=== PATIENT | female | born 1995 | race Caucasian/White ===

== ENCOUNTER 2022-03-10 03:57 | Inpatient (IN) ==
[2022-03-10] MEDS ORDERED: miSOPROStoL 25 MCG TABLET PO PRN (04:08)
[2022-03-10] MEDS ORDERED: Metoclopramide 10 MG/2 ML VIAL IVP PRN (04:08)
[2022-03-10] MEDS ORDERED: Naloxone 0.4 MG/ML INJ IVP PRN (04:08)
[2022-03-10] MEDS ORDERED: Famotidine 20 MG/2 ML VIAL IVP PRN (04:08)
[2022-03-10 05:23] LABS: Basophils # 0.1 K/mcL (0.0-0.2); Basophils % 0.4 %; Eosinophils # 0.1 K/mcL (0.0-0.6); Eosinophils % 0.8 %; Hematocrit 38.8 % (35.3-44.9); Hemoglobin 13.2 g/dL (11.5-15.4); Immature Granulocytes % 2.7 % (0-4); Lymphocytes # 2.8 K/mcL (0.6-4.6); Lymphocytes % 17.3 %; Mean Corpuscular Hemoglobin 28.5 pg (28.0-33.3); Mean Corpuscular Volume 83.8 fL (83.0-100.0); Mean Platelet Volume 11.9 fL (9.4-12.4); Monocytes # 1.4 K/mcL (0.0-1.3); Monocytes % 8.5 %; Neutrophils # 11.3 K/mcL (1.6-8.9); Platelet Count 161 K/mcL (140-400); Red Blood Count 4.63 M/mcL (3.82-4.97); Red Cell Distribution Width 13.5 % (11.5-14.5); Segmented Neutrophils % 70.3 %; White Blood Count 16.1 K/mcL (4.3-11.1)
[2022-03-10 05:37] LABS: Amphetamine Screen,Urine Negative ng/mL (Cutoff=1000); Barbiturate Screen,Urine Negative ng/mL (Cutoff=200); Benzodiazepines Screen,Urine Negative ng/mL (Cutoff=200); Cannabinoid Screen,Urine Negative ng/mL (Cutoff = 50); Cocaine Screen,Urine Negative ng/mL (Cutoff= 300); Opiate Screen,Urine Negative ng/mL (Cutoff=300); Phencyclidine Screen,Urine Negative ng/mL (Cutoff=25)
[2022-03-10] MEDS ORDERED: EPHEDrine 50 MG/ML VIAL IVP PRN (06:36)
[2022-03-10] MEDS ORDERED: *HR* Nalbuphine 10 MG/ML AMPUL IV PRN (09:53)
[2022-03-10] MEDS: Ringers Solution, Lactated 1,000 ML IVC SCH ×2 (09:59→14:00)
[2022-03-10 12:29] LABS: Protein/Creatinine Ratio,Urine 0.35 mg/mg (0.00-0.20)
[2022-03-10 13:02] LABS: Alanine Aminotransferase 12 Units/L (7-52); Aspartate Amino Transferase 16 Units/L (13-39); BUN/Creatinine Ratio 21 (6-26); Blood Urea Nitrogen 12 mg/dL (6-20); Lactate Dehydrogenase 183 Units/L (140-271); Uric Acid 6.9 mg/dL (2.3-7.6)
[2022-03-10] MEDS: Epidural Premix (fent/bupiv) 110 ML EP SCH ×2 (13:59→19:32)
[2022-03-10] MEDS: Oxytocin 30 UNIT/503 ML BAG IVC SCH (15:40)
[2022-03-11] MEDS: Epidural Premix (fent/bupiv) 110 ML EP SCH ×3 (00:57→13:07)
[2022-03-11] MEDS: Oxytocin 30 UNIT/503 ML BAG IVC SCH (03:15)
[2022-03-11] MEDS ORDERED: Azithromycin 500 MG in 0.9 % Sodium Chloride 250 ML IVPB PRN (13:06)
[2022-03-11] MEDS ORDERED: CeFAZolin Syr 3,000MG/30 ML 3,000 MG/30 ML SYRINGE IVPB ONE (13:27)
[2022-03-11] MEDS ORDERED: Ondansetron 4 MG/2 ML VIAL ONE (14:00)
[2022-03-11] MEDS ORDERED: Acetaminophen IV 1,000 MG/100 ML BAG IVPB ONE (14:00)
[2022-03-11] MEDS ORDERED: Ketorolac 30 MG/ML VIAL ONE (14:00)
[2022-03-11] MEDS ORDERED: Sodium Bicarbonate 50 MEQ/50 ML VIAL ONE (14:00)
[2022-03-11] MEDS ORDERED: EPHEDrine 50 MG/ML VIAL ONE (14:01)
[2022-03-11] MEDS ORDERED: Lidocaine/EPI 1:200k 2% PF 20 ML VIAL ONE (14:04)
[2022-03-11] MEDS ORDERED: *HR* Morphine Sulfate/PF 10 MG/10 ML AMPUL ONE (14:41)
[2022-03-11] MEDS ORDERED: *HR* HYDROmorphone PF 0.5 MG/0.5 ML SYRINGE IVP PRN (14:44)
[2022-03-11] MEDS ORDERED: Promethazine 6.25 MG in Water for inj. (sterile) 20 ML IVPB PRN (14:44)
[2022-03-11] MEDS ORDERED: Ondansetron 4 MG/2 ML VIAL IVP PRN ×2 (14:44→18:26)
[2022-03-11] MEDS ORDERED: Metoclopramide 10 MG/2 ML VIAL IVP PRN (18:26)
[2022-03-11] MEDS ORDERED: Simethicone 80 MG TAB.CHEW PO PRN (18:26)
[2022-03-11] MEDS ORDERED: *HR* OxyCODONE Immed Rel 5 MG TABLET PO PRN (18:26)
[2022-03-11] MEDS ORDERED: Ringers Solution, Lactated 1,000 ML IVC SCH (18:26)
[2022-03-11] MEDS ORDERED: OXYTOCIN/RINGERS LACTATE 10 UNIT/166.6 ML BAG IVC ONE (18:26)
[2022-03-11] MEDS ORDERED: Naloxone 0.4 MG/ML INJ IVP PRN (18:26)
[2022-03-11] MEDS: Acetaminophen 325 MG TABLET PO SCH (19:40)
[2022-03-11] MEDS: *HR* Enoxaparin 60 MG/0.6 ML SYRINGE SQ SCH (19:40)
[2022-03-11] MEDS: Ibuprofen 600 MG TABLET PO SCH (19:40)
[2022-03-12] MEDS: Acetaminophen 325 MG TABLET PO SCH ×3 (02:00→17:25)
[2022-03-12] MEDS: Ibuprofen 600 MG TABLET PO SCH ×3 (02:00→17:24)
[2022-03-12 05:21] LABS: Basophils # 0.1 K/mcL (0.0-0.2); Basophils % 0.3 %; Eosinophils # 0.1 K/mcL (0.0-0.6); Eosinophils % 0.3 %; Hematocrit 34.4 % (35.3-44.9); Immature Granulocytes % 1.7 % (0-4); Mean Corpuscular HGB Conc 33.4 g/dL (31.6-35.5); Mean Corpuscular Hemoglobin 28.4 pg (28.0-33.3); Mean Corpuscular Volume 84.9 fL (83.0-100.0); Mean Platelet Volume 12.2 fL (9.4-12.4); Monocytes # 1.7 K/mcL (0.0-1.3); Monocytes % 9.1 %; Neutrophils # 13.6 K/mcL (1.6-8.9); Platelet Count 142 K/mcL (140-400); Red Blood Count 4.05 M/mcL (3.82-4.97); Red Cell Distribution Width 13.5 % (11.5-14.5); Segmented Neutrophils % 72.6 %; White Blood Count 18.7 K/mcL (4.3-11.1)
[2022-03-12 05:23] LABS: Hemoglobin 11.5 g/dL (11.5-15.4)
[2022-03-12] MEDS: Prenatal Vit/FA 1 EACH TABLET PO SCH (07:43)
[2022-03-12] MEDS: *HR* Enoxaparin 60 MG/0.6 ML SYRINGE SQ SCH ×2 (07:43→21:13)
[2022-03-13] MEDS: Acetaminophen 325 MG TABLET PO SCH ×2 (03:12→10:55)
[2022-03-13] MEDS: Ibuprofen 600 MG TABLET PO SCH ×2 (03:12→10:55)
[2022-03-13] MEDS: Prenatal Vit/FA 1 EACH TABLET PO SCH (10:55)
[2022-03-13] MEDS: *HR* Enoxaparin 60 MG/0.6 ML SYRINGE SQ SCH (10:56)
[2022-03-13 15:18] VITALS: BP 143/83; PULSE 82; TEMP 98.2; O2SAT 99
== END 2022-03-13 18:00 | disposition home or self-care (01) | DRG 788 ==
LOC: 1NENULAB 03:57 → 1NENUOBS 03-11 18:13
PROVIDERS: ADMIT Advanced Practice Midwife; ATTEND Advanced Practice Midwife